=== PATIENT | male | born 1980 | race Caucasian/White ===

== ENCOUNTER 2017-02-14 09:48 | Inpatient (IN) | payer BC ==
[~2017-02-14] VITALS: Ht 182.9 cm; Wt 129.2 kg
[~2017-02-14 09:48] MED LIST: CIPRO500 MG PO; COUMADIN5 MG PO; COUMADIN7.5 MG PO; LOVENOX150 MG/1 M SC; PEN-VEE K,VEET500 MG PO; PERCOCET 5/31 TABLET PO; ULTRACET1 TABLET PO; WARFARIN SODIUM10 MG PO
[2017-02-14 10:53] LABS: HEMATOCRIT 44.2 % (38.0-50.0); MCHC 34.8 G/DL (30.0-36.0); MCV 91.9 FL (86-99); MEAN PLAT.VOLUME 10.4 uM^3 (9.0-12.4); PLATELET COUNT 253 K/uL (156-360); RBC DIS.WIDTH-CV 11.3 % (11.8-14.6); RBC DIS.WIDTH-SD 38.6 % (39-53); RED BLOOD COUNT 4.81 M/uL (4.00-5.50); WHITE BLOOD COUNT 10.9 K/uL (4.1-10.2)
[2017-02-14 11:05] LABS: CHLORIDE 96 mEq/L (99-109); POTASSIUM 3.4 mEq/L (3.7-5.4); SODIUM 137 mEq/L (136-147)
[2017-02-14 11:06] LABS: GLUCOSE 105 mg/dL (70-99)
[2017-02-14 11:11] LABS: ANION GAP 12 MEQ/L (2-14); GFR ESTIMATE (CALCULATED) > 59 mL/min/; UREA NITROGEN (BUN) 8 mg/dL (9-23)
[2017-02-14 11:23] LABS: BASE EXCESS 9.1 mEq/L (-3 to +3); BICARBONATE 35.3 mEq/L (22-26); METHEMOGLOBIN 1.3 % (0-1.5); PCO2 52 mm Hg (35-45); PO2 64 mm Hg (80-100); pH 7.44 (7.35-7.45)
[2017-02-14 11:24] LABS: COMMENTS - BLOOD GASES A+C+; DEVICE HFNC; O2 FLOW 8 L/MIN; SITE RR
[2017-02-14 11:26] LABS: CARBOXY HGB 6.5 % (0-5)
[2017-02-14 11:32] LABS: TROP-I INTERPRETATION NEGATIVE; TROPONIN-I < 0.01 ng/mL (0.0-0.30)
[2017-02-14 11:38] LABS: INFLUENZA A VIRAL ANTIGEN NEGATIVE; INFLUENZA B VIRAL ANTIGEN NEGATIVE
[2017-02-14 12:00] LABS: HEMATOCRIT 42.8 % (38.0-50.0); MCHC 34.6 G/DL (30.0-36.0); MCV 92.4 FL (86-99); MEAN PLAT.VOLUME 10.6 uM^3 (9.0-12.4); RBC DIS.WIDTH-CV 11.4 % (11.8-14.6); RBC DIS.WIDTH-SD 38.8 % (39-53); RED BLOOD COUNT 4.63 M/uL (4.00-5.50); WHITE BLOOD COUNT 10.2 K/uL (4.1-10.2)
[2017-02-14 12:05] LABS: INTER. NORMALIZED RATIO 1.2; PROTHROMBIN TIME 13.5 SEC (10.2-12.9)
[2017-02-14 14:09] LABS: BASOPHIL COUNT 0.1 K/uL (0-0.1); EOSINOPHIL (%) 2.7 % (0-5); EOSINOPHIL COUNT 0.3 K/uL (0-0.3); IMMATURE GRANULOCYTE (%) 0.4 % (0.0-0.7); INSTRUMENT ABS NEUTROPHIL CT 6.2 K/uL; LYMPHOCYTE COUNT 2.4 K/uL (1.0-2.8); MONOCYTE (%) 12.8 % (3-12); MONOCYTE COUNT 1.3 K/uL (0-0.8); NEUTROPHIL (%) 60.5 % (45-76); NEUTROPHIL COUNT 6.2 K/uL (1.8-6.4); PLATELET CLUMPS PRESENT - PLATELET COUNT APPEARS ADQ.
[2017-02-14 16:10] VITALS: BP 157/73
[2017-02-14 19:48] LABS: ADD MIUA? NO; BILIRUBIN NEGATIVE; BLOOD NEGATIVE; COLOR YELLOW ((YELLOW)); GLUCOSE (STRIP) >=500; KETONES NEGATIVE; LEUKOCYTES NEGATIVE; NITRITE NEGATIVE; PROTEIN (STRIP) NEGATIVE; SPECIFIC GRAVITY 1.026 (1.000-1.030); UCUL ADDED? NO
[2017-02-14 20:00] VITALS: BP 149/78
[2017-02-15 00:15] VITALS: BP 128/84
[2017-02-15 03:32] VITALS: BP 132/80
[2017-02-15 05:18] LABS: HEMATOCRIT 39.3 % (38.0-50.0); MCH 31.3 PG (29.0-34.0); MCHC 33.6 G/DL (30.0-36.0); MCV 93.1 FL (86-99); MEAN PLAT.VOLUME 10.8 uM^3 (9.0-12.4); PLATELET COUNT 238 K/uL (156-360); RBC DIS.WIDTH-CV 11.5 % (11.8-14.6); RBC DIS.WIDTH-SD 39.1 % (39-53); RED BLOOD COUNT 4.22 M/uL (4.00-5.50); WHITE BLOOD COUNT 9.3 K/uL (4.1-10.2)
[2017-02-15 05:42] LABS: ANION GAP 6 MEQ/L (2-14); CHLORIDE 107 MEQ/L (99-109); GFR ESTIMATE (CALCULATED) > 59 mL/min/; SAMPLE HEMOLYSIS CHECK 0; SAMPLE ICTERIC CHECK 0; SAMPLE LIPEMIA CHECK 0; SODIUM 143 MEQ/L (136-147); UREA NITROGEN (BUN) 7 mg/dL (9-23)
[2017-02-15 05:51] LABS: GLUCOSE 178 mg/dL (70-99); POTASSIUM 4.1 MEQ/L (3.7-5.4)
[2017-02-15 06:44] LABS: EOSINOPHIL (%) 0 % (0-5); IMMATURE GRANULOCYTE (%) 0.9 % (0.0-0.7); IMMATURE GRANULOCYTE COUNT 0.1 K/uL; INSTRUMENT ABS NEUTROPHIL CT 7.7 K/uL; MONOCYTE (%) 5.3 % (3-12); MONOCYTE COUNT 0.5 K/uL (0-0.8); NEUTROPHIL (%) 82.5 % (45-76); NEUTROPHIL COUNT 7.7 K/uL (1.8-6.4); PLAT.SUFFICIENCY ADEQUATE
[2017-02-15 07:51] LABS: INTERNAL CONTROL VALID? YES
[2017-02-15 07:52] LABS: METH RESISTANT S AUREUS PCR NEGATIVE (NEGATIVE); PROBE CHECK PASS; SPECIMEN PROCESSING CONTROL PASS
[2017-02-15 09:00] VITALS: BP 133/89
[2017-02-15 12:02] VITALS: BP 124/89
[2017-02-15 14:57] VITALS: BP 131/85
[2017-02-15 19:00] VITALS: BP 134/75
[2017-02-16 00:31] VITALS: BP 146/77
[2017-02-16 04:38] VITALS: BP 143/78
[2017-02-16 05:24] LABS: CHLORIDE 105 mEq/L (99-109); POTASSIUM 4.4 mEq/L (3.7-5.4); SODIUM 142 mEq/L (136-147)
[2017-02-16 05:28] LABS: ANION GAP 10 MEQ/L (2-14); TOTAL BILIRUBIN 0.2 mg/dL (0.0-1.0)
[2017-02-16 05:30] LABS: ALKALINE PHOSPHATASE 54 IU/L (3-129); GFR ESTIMATE (CALCULATED) > 59 mL/min/; GLUCOSE 286 mg/dL (70-99)
[2017-02-16 05:31] LABS: UREA NITROGEN (BUN) 6 mg/dL (9-23)
[2017-02-16 05:39] LABS: HEMATOCRIT 43.4 % (38.0-50.0); MCH 31.4 PG (29.0-34.0); MCHC 32.9 G/DL (30.0-36.0); MCV 95.4 FL (86-99); MEAN PLAT.VOLUME 11.1 uM^3 (9.0-12.4); PLATELET COUNT 300 K/uL (156-360); RBC DIS.WIDTH-CV 11.5 % (11.8-14.6); RBC DIS.WIDTH-SD 40.2 % (39-53); RED BLOOD COUNT 4.55 M/uL (4.00-5.50)
[2017-02-16 07:02] LABS: EOSINOPHIL (%) 0 % (0-5); IMMATURE GRANULOCYTE (%) 1.3 % (0.0-0.7); IMMATURE GRANULOCYTE COUNT 0.1 K/uL; INSTRUMENT ABS NEUTROPHIL CT 8.6 K/uL; MONOCYTE (%) 1.8 % (3-12); MONOCYTE COUNT 0.2 K/uL (0-0.8); NEUTROPHIL (%) 86.5 % (45-76); NEUTROPHIL COUNT 8.6 K/uL (1.8-6.4)
[2017-02-16 07:10] VITALS: BP 159/94
[2017-02-16 10:15] LABS: Estimated Average Glucose 117 mg/dL (70-123); HEMOGLOBIN A1c (GLYCOHEMOGLOB) 5.7 % HGB (Below 5.7)
[2017-02-16 11:20] VITALS: BP 139/86
[2017-02-16 11:28] LABS: POINT-OF-CARE METER ID UU13113781; POINT-OF-CARE USER ID ENVKC36
[2017-02-16 15:15] VITALS: BP 148/89
[2017-02-16 16:45] LABS: POINT-OF-CARE METER ID UU13113781
[2017-02-16 20:03] VITALS: BP 150/86
[2017-02-16 21:49] LABS: POINT-OF-CARE METER ID UU13113781
[2017-02-17 03:48] VITALS: BP 143/84
[2017-02-17 06:00] LABS: HEMATOCRIT 42.2 % (38.0-50.0); MCH 31.5 PG (29.0-34.0); MCHC 33.4 G/DL (30.0-36.0); MCV 94.2 FL (86-99); MEAN PLAT.VOLUME 10.8 uM^3 (9.0-12.4); PLATELET COUNT 317 K/uL (156-360); RBC DIS.WIDTH-CV 11.7 % (11.8-14.6); RBC DIS.WIDTH-SD 40.3 % (39-53); RED BLOOD COUNT 4.48 M/uL (4.00-5.50); WHITE BLOOD COUNT 15.5 K/uL (4.1-10.2)
[2017-02-17 06:40] LABS: EOSINOPHIL (%) 0 % (0-5); IMMATURE GRANULOCYTE (%) 1.3 % (0.0-0.7); IMMATURE GRANULOCYTE COUNT 0.2 K/uL; INSTRUMENT ABS NEUTROPHIL CT 13.5 K/uL; LYMPHOCYTE COUNT 1.3 K/uL (1.0-2.8); MONOCYTE (%) 2.8 % (3-12); MONOCYTE COUNT 0.4 K/uL (0-0.8); NEUTROPHIL (%) 87.2 % (45-76); NEUTROPHIL COUNT 13.5 K/uL (1.8-6.4)
[2017-02-17 07:15] VITALS: BP 142/84
[2017-02-17 07:54] LABS: ANION GAP 7 MEQ/L (2-14); CHLORIDE 104 MEQ/L (99-109); GFR ESTIMATE (CALCULATED) > 59 mL/min/; GLUCOSE 171 mg/dL (70-99); POTASSIUM 4.5 MEQ/L (3.7-5.4); SAMPLE HEMOLYSIS CHECK 0; SAMPLE ICTERIC CHECK 0; SAMPLE LIPEMIA CHECK 0; SODIUM 142 MEQ/L (136-147); UREA NITROGEN (BUN) 10 mg/dL (9-23)
[2017-02-17 15:48] VITALS: BP 160/91
[2017-02-17 17:30] VITALS: BP 153/101
[2017-02-17 22:41] LABS: POINT-OF-CARE METER ID UU13113725
[2017-02-18 00:35] VITALS: BP 142/77
[2017-02-18 06:09] LABS: MCH 31.9 PG (29.0-34.0); MCHC 33.7 G/DL (30.0-36.0); MCV 94.5 FL (86-99); MEAN PLAT.VOLUME 10.4 uM^3 (9.0-12.4); PLATELET COUNT 318 K/uL (156-360); RBC DIS.WIDTH-CV 11.7 % (11.8-14.6); RBC DIS.WIDTH-SD 40.2 % (39-53); RED BLOOD COUNT 4.55 M/uL (4.00-5.50); WHITE BLOOD COUNT 18.7 K/uL (4.1-10.2)
[2017-02-18 06:35] LABS: ANION GAP 4 MEQ/L (2-14); CHLORIDE 102 MEQ/L (99-109); GFR ESTIMATE (CALCULATED) > 59 mL/min/; GLUCOSE 143 mg/dL (70-99); POTASSIUM 4.8 MEQ/L (3.7-5.4); SAMPLE HEMOLYSIS CHECK 0; SAMPLE ICTERIC CHECK 0; SAMPLE LIPEMIA CHECK 0; SODIUM 142 MEQ/L (136-147); UREA NITROGEN (BUN) 12 mg/dL (9-23)
[2017-02-18 07:51] VITALS: BP 132/83
[2017-02-18 11:49] LABS: POINT-OF-CARE METER ID UU13113725
[2017-02-18 15:57] VITALS: BP 139/91
[2017-02-18 16:40] LABS: POINT-OF-CARE METER ID UU13113725
[2017-02-18 23:35] VITALS: BP 138/82
[2017-02-19 06:59] LABS: ANION GAP 3 MEQ/L (2-14); CHLORIDE 101 MEQ/L (99-109); GFR ESTIMATE (CALCULATED) > 59 mL/min/; GLUCOSE 144 mg/dL (70-99); POTASSIUM 4.6 MEQ/L (3.7-5.4); SAMPLE HEMOLYSIS CHECK 0; SAMPLE ICTERIC CHECK 0; SAMPLE LIPEMIA CHECK 0; SODIUM 141 MEQ/L (136-147); UREA NITROGEN (BUN) 12 mg/dL (9-23)
[2017-02-19 07:35] VITALS: BP 137/85
[2017-02-19 16:00] VITALS: BP 149/94
[2017-02-19 21:20] LABS: POINT-OF-CARE METER ID UU13113725
[2017-02-20 00:27] VITALS: BP 134/72
[2017-02-20 06:33] LABS: EOSINOPHIL (%) 0 % (0-5); HEMATOCRIT 43.8 % (38.0-50.0); IMMATURE GRANULOCYTE COUNT 0.3 K/uL; INSTRUMENT ABS NEUTROPHIL CT 14.3 K/uL; LYMPHOCYTE COUNT 1.8 K/uL (1.0-2.8); MCH 31.4 PG (29.0-34.0); MCHC 33.1 G/DL (30.0-36.0); MCV 94.8 FL (86-99); MEAN PLAT.VOLUME 10.5 uM^3 (9.0-12.4); MONOCYTE (%) 4.2 % (3-12); MONOCYTE COUNT 0.7 K/uL (0-0.8); NEUTROPHIL (%) 83.2 % (45-76); NEUTROPHIL COUNT 14.3 K/uL (1.8-6.4); PLATELET COUNT 278 K/uL (156-360); RBC DIS.WIDTH-CV 11.6 % (11.8-14.6); RBC DIS.WIDTH-SD 40.2 % (39-53); RED BLOOD COUNT 4.62 M/uL (4.00-5.50); WHITE BLOOD COUNT 17.2 K/uL (4.1-10.2)
[2017-02-20 07:01] LABS: ANION GAP 5 MEQ/L (2-14); CHLORIDE 98 MEQ/L (99-109); GFR ESTIMATE (CALCULATED) > 59 mL/min/; GLUCOSE 152 mg/dL (70-99); POTASSIUM 4.5 MEQ/L (3.7-5.4); SAMPLE HEMOLYSIS CHECK 0; SAMPLE ICTERIC CHECK 0; SAMPLE LIPEMIA CHECK 0; SODIUM 140 MEQ/L (136-147); UREA NITROGEN (BUN) 13 mg/dL (9-23)
[2017-02-20] MEDS ORDERED: CEFDINIR300 MG PO (07:51)
[2017-02-20] MEDS ORDERED: SPIRIVA1 INHALATI IH (07:51)
[2017-02-20] MEDS ORDERED: ACIDOPHILUS LA1 EACH PO (07:51)
[2017-02-20] MEDS ORDERED: PREDNISONE10 M1 PO (07:51)
[2017-02-20] MEDS ORDERED: ADVAIR HFA120 INHALA IH (07:51)
[2017-02-20] MEDS ORDERED: NICOTINE PATCH1 EAC2 TD (07:51)
[2017-02-20] MEDS ORDERED: VENTOLIN HFA18 GM IH (07:51)
[2017-02-20 07:58] VITALS: BP 147/80
[2017-02-20 11:17] LABS: POINT-OF-CARE METER ID UU13113725
== END 2017-02-20 12:53 | disposition home or self-care (01) | DRG 189 ==
LOC: EME 09:48 → 4EAST 13:43 → EDOF 13:43 → 4EAST 13:44 → ENRESERV 13:45 → 4EAST 16:13 → ENRESERV 02-17 09:25 → 5EAST 02-17 09:43 → ENRESERV 02-17 09:46 → 4EAST 02-17 09:59 → 5EAST 02-17 13:51 → ENPENDDIS 02-20 → 5EAST 02-20 12:53
PROVIDERS: Hospitalist; Internal Medicine; Nurse Practitioner Family
DX: J96.01 Acute respiratory failure with hypoxia (principal); J44.0 Chronic obstructive pulmonary disease with (acute) lower respiratory infection; E66.01 Morbid (severe) obesity due to excess calories; J18.9 Pneumonia, unspecified organism; E87.6 Hypokalemia; F17.210 Nicotine dependence, cigarettes, uncomplicated; J44.1 Chronic obstructive pulmonary disease with (acute) exacerbation; R73.9 Hyperglycemia, unspecified; G47.30 Sleep apnea, unspecified; Z68.37 Body mass index [BMI] 37.0-37.9, adult; T38.0X5A Adverse effect of glucocorticoids and synthetic analogues, initial encounter; Z86.718 Personal history of other venous thrombosis and embolism
CPT/HCPCS: 36600; 71010; 71020; 71275; 80048; 80053; 80202; 81003; 82803; 82948; 83036; 83605; 83690; 84484; 85025; 85027; 85379; 85610; 85730; 87040; 87070; 87205; 87449; 87502; 87641; 93005; 94640; 94640 76; 94667; 94668; 94760; 94799; 99202; 99281; 99285; J0456; J0696; J1650; J1815; J2930; J3370; J3480; J7030; J7050